=== PATIENT | female | born 1960 | race Caucasian/White ===

== ENCOUNTER → 2017-12-08 | Day surgery (SDC) | payer OTHER ==
[~2017-12-08] VITALS: Ht 167.6 cm; Wt 99.8 kg
[~2017-12-08] MED LIST: LEXAPRO20 M1 PO; WELLBUTRIN XL300 M2 PO
--- NOTE | 2017-12-08 10:21 | Operative Report ---
Operative/Inv Procedure Report Surgery Date: 12/08/17 Name of Procedure: left ESWL Pre-Operative Diagnosis: 8mm left renal stone Post-Operative Diagnosis: same Estimated Blood Loss: scant Surgeon/Hyster Driver: Citlali Bruno MD Anesthesia: local monitored anesthesi Complications: none Condition: stable Operative Indication: left renal stone with pain Operative/Procedure Note Note: 57yo female with a hx of kidney stones. She was consented for left ESWL for the 8mm renal stone. She was given the risks, benefits and alternatives. All questions were answered. Pt was brought to the operating room and placed in the supine position. She was optimally positioned after time out was performed. She was given IV antibiotics. The shockwaves were started at 1-17 power for 250 shocks, then power 18-19 for 250 shocks, and finally at power of 19-20 for 2000 shocks. She tolerated the procedure well. The stone was seen to be somewhat visibly changed on US. No flouroscopy was used. Patient was transferred to the recovery room in stable condition. Findings: 8mm stone in the mid to lower pole left side changed after ESWL Discharge Disposition: Same Day Admissions
== END ==
LOC: STS 11-10 07:00
DX: N20.0 Calculus of kidney (principal); Z87.442 Personal history of urinary calculi; D86.0 Sarcoidosis of lung; J45.909 Unspecified asthma, uncomplicated
CPT/HCPCS: J0690; J2250